=== PATIENT | male | born 1970 | race Caucasian/White ===

== ENCOUNTER → 2017-10-15 | Outpatient (CLI) | payer OTHER | END | disposition home or self-care (01) | LOC: RAH 13:15 | PROVIDERS: ATTEND Family Medicine | DX: S29.011A Strain of muscle and tendon of front wall of thorax, initial encounter (principal); M25.511 Pain in right shoulder; X58.XXXA Exposure to other specified factors, initial encounter; Y93.89 Activity, other specified; Y92.89 Other specified places as the place of occurrence of the external cause; Y99.8 Other external cause status | CPT/HCPCS: 71550 ==

== ENCOUNTER → 2017-11-05 | Outpatient (CLI) | payer OTHER ==
[~2017-11-05] MED LIST: GADOBENATE DIMEGLUMINE 10 ML IV ONE; IOPAMIDOL 10 ML VIAL ONE; LIDOCAINE HCL 1% 20 ML VIAL ONE
== END | disposition home or self-care (01) ==
LOC: RAH 12:54
PROVIDERS: ATTEND Family Medicine
DX: M25.511 Pain in right shoulder (principal)
CPT/HCPCS: 23350; 73223; 77002; A9577; Q9966